=== PATIENT | female | born 1970 | race Caucasian/White ===

== ENCOUNTER 2021-01-09 23:51 | Emergency (ER) | payer BC ==
[~2021-01-09] VITALS: Ht 167.6 cm; Wt 112.5 kg
[~2021-01-09 23:51] MED LIST: AMBIEN CR12.5 MG; CALCIUM CIT 201 EACH; COZAAR100 MG; DAILY MULTIPLE1 EACH; FISH OIL + D31 EACH; HYDROCHLOROTH12.5 M1; HYDROCODON-ACE1 EAC8 PO; MAXALT MLT10 MG; OMEPRAZOLE20 MG; PROAIR DIGIHAL90 MCG; SINGULAIR10 MG; TYLENOL325 M1; VITAMIN D250 MCG; ZYRTEC10 M3
--- OUTSIDE RECORDS SUMMARY | 2021-01-09 23:54 | XMS ---
PreManage Notification: REESE ESPINO Security Pan Washer Events No recent Security Events currently on file CRITERIA MET - [facility] CARE PROVIDERS There are no care providers on record at this time. Mario has no Care Guidelines for this patient. [facility] VISIT COUNT (12 MO.) 1 [facility] 1 [facility] TOTAL 2 NOTE: Visits indicate total known visits. [place] [place]12 MO.) 01/09/2021 23:52 [facility] [place] TYPE: Emergency COMPLAINT: - BLOOD PRESSURE [facility]OBLE[facility] DIAGNOSES: - fever, COVID+ - Weakness - Fever (9 Weeks To 74 Years) - Cough - COVID-19 INPATIENT VISIT TRACKING (12 MO.) No inpatient visits to display in this time frame [email or web address]
== END 2021-01-10 00:26 | disposition home or self-care (01) ==
LOC: ED 23:51
DX: I10 Essential (primary) hypertension (principal); K21.9 Gastro-esophageal reflux disease without esophagitis; J45.909 Unspecified asthma, uncomplicated; Z88.5 Allergy status to narcotic agent; Z79.899 Other long term (current) drug therapy
CPT/HCPCS: 99283

== ENCOUNTER 2021-06-26 05:55 | Day surgery (SDC) | payer BC ==
[~2021-06-26] VITALS: Ht 167.6 cm; Wt 110.0 kg
[2021-06-26] MEDS ORDERED: ROPINIROLE HCL2 MG PO (06:08)
--- NOTE | 2021-06-26 08:48 | NUR ---
PT ALERT, ORIENTED AND HERE FOR HER FIRST SCOPE.PT IS ANXIOUS, HAD MOMENT TO ENCOURAGE PT, PT REQUESTED PRAYER. FRIEND WILL MANAGER OF PURCHASING FOLLOWING DC. I WILL FOLLOW NEEDED
--- NOTE | 2021-06-26 08:56 | NUR ---
0845 WARM BLANKET ON. HAS BEEN UPDATED ON WAIT. IV PATENT.
--- NOTE | 2021-06-26 10:28 | NUR ---
06/26/21 1028 Sheets,Nova 1017 PT ARRIVED TO PACU ON 6L VIA MASK, RESP EVEN AND UNLABORED. VSS. 1019 O2 REMOVED AND PT AWAKE AND TALKING TO RN.
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
--- NOTE | 2021-07-01 10:08 | PATH ---
[facility] [address] [place], [place] [address] Signed SPECIMEN(S): A COLON POLYP AT 15 CM SPECIMEN(S): B COLON POLYP AT 8 CM SPECIMEN SOURCE: A. COLON POLYP AT 15 CM B. COLON POLYP AT 8 CM CLINICAL HISTORY: Screening colonoscopy. FINAL PATHOLOGIC DIAGNOSIS: A. Colon, polyp at 15 cm, polypectomy: - Hyperplastic polyp. - Negative for dysplasia or malignancy. B. Colon, polyp at 8 cm, polypectomy: - Focal detached colonic glands with hyperplastic morphology. - Intact fragment of colonic mucosa with no histopathologic abnormality. - Negative for dysplasia or malignancy. COMMENT: Regarding specimen B: The detached glands could represent fragments of hyperplastic polyp. NAL:cml:C2NR MICROSCOPIC EXAMINATION: Histologic sections of all submitted blocks are examined by light microscopy. These findings, together with the gross examination, support the pathologic diagnosis. GROSS DESCRIPTION: Two specimens are received in two containers, labeled "TH." A. The specimen, labeled "TH, 1," and designated on the requisition "colon polyp at 15 cm," is received in formalin and consists of one coy soft tissue fragment that measures 0.3 cm in greatest dimension. The specimen is entirely submitted in cassette (A1). B. The specimen, labeled "TH, 2," and designated on the requisition "colon polyp at 8 cm," is received in formalin and consists of one coy soft tissue fragment that measures 0.3 cm in greatest dimension. The specimen is entirely submitted in cassette (B1). AT (under the direct supervision of a pathologist) The Gross Description was prepared using a voice recognition system. The report PATIENT NAME: REESE ESPINO PATHOLOGY DATE OF : 66 REPORT #: [id number] PHYSICIAN: TUYET FLORES PCP: ARSEN SHIRLEY REPORT IS CONFIDENTIAL AND NOT TO BE RELEASED WITHOUT AUTHORIZATION [facility] [address] [address] Signed was reviewed for accuracy; however, sound-alike word errors, addition and/or deletions may occur. If there is any question about this report, please contact Client Services. PERFORMING LABORATORY: The technical component was performed [place] [id number] (Precision Thread Grinder Operator: Jaqueline De Los Santos MD; CLIA# [id number]). Professional interpretation was performed by [facility], [address] [address] (CLIA# [id number]). Diagnostician: Dia Bundy MD Pathologist Electronically Signed 07/01/2021 Copies: ~ PATIENT NAME: REESE ESPINO PATHOLOGY DATE OF : 66 REPORT #: [id number] PHYSICIAN: [facility] PCP: ARSEN SHIRLEY REPORT IS CONFIDENTIAL AND NOT TO BE RELEASED WITHOUT AUTHORIZATION
== END 2021-06-26 10:50 | disposition home or self-care (01) ==
LOC: OPS 05:55 → DS 05:55 → OPS 07:30
PROVIDERS: ATTEND Colon & Rectal Surgery
PROC: 0DBN8ZX Excision of Sigmoid Colon, Via Natural or Artificial Opening Endoscopic, Diagnostic (ICD-10-PCS; 2021-06-26)
PROC: 0DBP8ZX Excision of Rectum, Via Natural or Artificial Opening Endoscopic, Diagnostic (ICD-10-PCS; principal; 2021-06-26 07:30)
DX: Z12.11 Encounter for screening for malignant neoplasm of colon (principal); K63.5 Polyp of colon; K62.1 Rectal polyp; K21.9 Gastro-esophageal reflux disease without esophagitis; I10 Essential (primary) hypertension; J45.20 Mild intermittent asthma, uncomplicated; E66.9 Obesity, unspecified; G47.00 Insomnia, unspecified; Z68.39 Body mass index [BMI] 39.0-39.9, adult; Z88.5 Allergy status to narcotic agent
CPT/HCPCS: J2704; J7121